=== PATIENT | male | born 1990 | race Caucasian/White ===

== ENCOUNTER 2016-12-25 00:06 | Emergency (ER) | payer OTHER | END 2016-12-25 01:00 | disposition home or self-care (01) | LOC: ER 00:06 | DX: K52.9 Noninfective gastroenteritis and colitis, unspecified (principal); F17.210 Nicotine dependence, cigarettes, uncomplicated ==

== ENCOUNTER 2017-01-15 00:24 | Emergency (ER) | payer OTHER | END 2017-01-15 02:30 | disposition home or self-care (01) | LOC: ER 00:24 | DX: S22.32XA Fracture of one rib, left side, initial encounter for closed fracture (principal); F17.200 Nicotine dependence, unspecified, uncomplicated; V49.50XA Passenger injured in collision with unspecified motor vehicles in traffic accident, initial encounter | CPT/HCPCS: Q9967 ==

== ENCOUNTER 2017-01-17 16:28 | Emergency (ER) | payer OTHER | END 2017-01-17 17:46 | disposition home or self-care (01) | LOC: ER 16:28 | DX: S22.32XA Fracture of one rib, left side, initial encounter for closed fracture (principal); R06.02 Shortness of breath; V49.60XA Unspecified car occupant injured in collision with unspecified motor vehicles in traffic accident, initial encounter ==